=== PATIENT | male | born 1935 | race Caucasian/White ===

== ENCOUNTER → 2018-02-03 | Outpatient (CLI) | payer MEDICARE ==
[~2018-02-03] MED LIST: SIMV10TA3; diazepam
[2018-02-03 15:28] LABS: ALANINE AMINOTRANSFERASE 35 U/L (12-78); ALBUMIN 3.8 g/dL (3.4-5.0); ANION GAP 8 mmol/L (5-15); CALCIUM 9.2 mg/dL (8.5-10.1); CHLORIDE 104 mmol/L (98-107)
[2018-02-03 15:31] LABS: ALKALINE PHOSPHATASE 126 U/L (45-117); BILIRUBIN,TOTAL 1.7 mg/dL (0.2-1.0); CHOLESTEROL, TOTAL 140 mg/dL (140-239); CREATININE 1.18 mg/dL (0.7-1.3); HDL CHOL % 33 % (26-37); HDL CHOLESTEROL (DIRECT) 46 mg/dL (40-60); LDL CHOLESTEROL,CALCULATED 71 mg/dL (54-169); LDL/HDL RATIO 1.5 (0.5-3.0); TOTAL PROTEIN 7.7 g/dL (6.4-8.2); TRIGLYCERIDES 116 mg/dL (50-200); VLDL CHOLESTEROL 23 mg/dL (0-25)
== END | disposition home or self-care (01) ==
LOC: CFH 12:30
PROVIDERS: ATTEND Internal Medicine Cardiovascular Disease
DX: I08.1 Rheumatic disorders of both mitral and tricuspid valves (principal); I48.91 Unspecified atrial fibrillation; I11.9 Hypertensive heart disease without heart failure; E78.2 Mixed hyperlipidemia
CPT/HCPCS: 36415; 80053; 80061; 93306

== ENCOUNTER → 2018-08-16 | Outpatient (CLI) | payer MEDICARE ==
[~2018-08-16] MED LIST changes: +APIX5TAB PO
[2018-08-16 13:00] LABS: ALBUMIN 3.7 g/dL (3.4-5.0); CALCIUM 9.1 mg/dL (8.5-10.1)
[2018-08-16 13:35] LABS: ALANINE AMINOTRANSFERASE 30 U/L (12-78); ALKALINE PHOSPHATASE 122 U/L (45-117); CHOL/HDL RATIO 2.9; CHOLESTEROL, TOTAL 117 mg/dL (140-239); CREATININE 1.08 mg/dL (0.7-1.3); HDL CHOL % 35 % (26-37); HDL CHOLESTEROL (DIRECT) 41 mg/dL (40-60); LDL CHOLESTEROL,CALCULATED 65 mg/dL (54-169); LDL/HDL RATIO 1.6 (0.5-3.0); TOTAL PROTEIN 7.1 g/dL (6.4-8.2); TRIGLYCERIDES 54 mg/dL (50-200); VLDL CHOLESTEROL 11 mg/dL (0-25)
[2018-08-16 13:43] LABS: ANION GAP 6 mmol/L (5-15); CHLORIDE 111 mmol/L (98-107)
== END | disposition home or self-care (01) ==
LOC: CFH 09:48
PROVIDERS: ATTEND Internal Medicine Cardiovascular Disease
DX: E78.2 Mixed hyperlipidemia (principal)
CPT/HCPCS: 36415; 80053; 80061

== ENCOUNTER → 2019-03-21 | Outpatient (CLI) | payer MEDICARE ==
[2019-03-21 13:06] LABS: CALCIUM 8.5 mg/dL (8.5-10.1); CHLORIDE 110 mmol/L (98-107)
[2019-03-21 13:12] LABS: ALANINE AMINOTRANSFERASE 26 U/L (12-78); ALBUMIN 3.6 g/dL (3.4-5.0); ALKALINE PHOSPHATASE 119 U/L (45-117); BILIRUBIN,TOTAL 1.6 mg/dL (0.2-1.0); CHOL/HDL RATIO 2.9; CHOLESTEROL, TOTAL 109 mg/dL (140-239); CREATININE 0.99 mg/dL (0.7-1.3); HDL CHOL % 35 % (26-37); HDL CHOLESTEROL (DIRECT) 38 mg/dL (40-60); LDL CHOLESTEROL,CALCULATED 55 mg/dL (54-169); LDL/HDL RATIO 1.4 (0.5-3.0); TOTAL PROTEIN 7.2 g/dL (6.4-8.2); TRIGLYCERIDES 79 mg/dL (50-200); VLDL CHOLESTEROL 16 mg/dL (0-25)
[2019-03-21 13:16] LABS: ANION GAP 6 mmol/L (5-15)
== END | disposition home or self-care (01) ==
LOC: CFH 10:53
PROVIDERS: ATTEND Internal Medicine Cardiovascular Disease
DX: E78.2 Mixed hyperlipidemia (principal)
CPT/HCPCS: 36415; 80053; 80061

== ENCOUNTER 2020-11-06 09:07 | Outpatient (CLI) | payer MEDICARE ==
[~2020-11-06 09:07] MED LIST changes: +SIMV10TA18; -SIMV10TA3
[2020-11-06 09:30] LABS: BASOPHILS % (AUTO) 1 % (0-1); EOSINOPHILS % (AUTO) 1 % (1-7); LYMPHOCYTES % (AUTO) 12 % (22-44); MEAN CORPUSCULAR HEMOGLOBIN 31.4 pg (27.5-34.5); MEAN CORPUSCULAR HGB CONC 33.2 g/dL (33.2-36.2); MEAN PLATELET VOLUME 9.4 fL (7.4-10.4); MONOCYTES % (AUTO) 11 % (2-9); NEUTROPHILS % (AUTO) 75 % (42-75); PLATELET COUNT 165 x10^3/uL (130-400); RED BLOOD COUNT 3.77 x10^6/uL (4.38-5.82); RED CELL DISTRIBUTION WIDTH 16.6 % (9.4-14.8)
[2020-11-06 09:40] LABS: ALBUMIN 3.1 g/dL (3.4-5.0); ANION GAP 7 mmol/L (5-15); CHLORIDE 108 mmol/L (98-107)
[2020-11-06 09:52] LABS: ALANINE AMINOTRANSFERASE 21 U/L (12-78); ALKALINE PHOSPHATASE 121 U/L (45-117); CHOL/HDL RATIO 2.6; CHOLESTEROL, TOTAL 95 mg/dL (140-239); CREATININE 0.98 mg/dL (0.7-1.3); HDL CHOL % 38 % (26-37); HDL CHOLESTEROL (DIRECT) 36 mg/dL (40-60); LDL CHOLESTEROL,CALCULATED 47 mg/dL (54-169); LDL/HDL RATIO 1.3 (0.5-3.0); TRIGLYCERIDES 62 mg/dL (50-200); VLDL CHOLESTEROL 12 mg/dL (0-25)
== END 2020-11-06 23:59 | disposition home or self-care (01) ==
LOC: LAB 09:07
PROVIDERS: ATTEND Internal Medicine
DX: I10 Essential (primary) hypertension (principal); D68.69 Other thrombophilia; R73.01 Impaired fasting glucose; E78.49 Other hyperlipidemia; E55.9 Vitamin D deficiency, unspecified; I48.20 Chronic atrial fibrillation, unspecified; K21.9 Gastro-esophageal reflux disease without esophagitis; R42 Dizziness and giddiness; R53.83 Other fatigue; R74.8 Abnormal levels of other serum enzymes
CPT/HCPCS: 36415; 80053; 80061; 82306; 83036; 84443; 85025